=== PATIENT | female | born 2000 | race Caucasian/White ===

== ENCOUNTER 2023-07-12 11:38 | Inpatient (IN) | payer OTHER ==
[2023-07-30] MEDS ORDERED: TRANEXAMIC 1,000 MG/100ML-NACL 1,000 MG in EMPTY BAG 1 BAG IV PRN (10:16)
[2023-07-30] MEDS ORDERED: CARBOPROST TROMETHAMINE 250 MCG/ML 1 ML AMP IM PRN (10:16)
[2023-07-30] MEDS ORDERED: OXYTOCIN 10 UNIT/ML 1 ML VIAL IM PRN (10:16)
[2023-07-30] MEDS ORDERED: METHYLERGONOVINE 0.2 MG/ML 1 ML AMP IM PRN (10:16)
[2023-07-30] MEDS ORDERED: miSOPROStoL 200 MCG TAB PO PRN (10:16)
[2023-07-30 10:39] LABS: Basophils % (A) 0 %; Eosinophils # (A) 0.1 k/uL (0-0.7); Eosinophils % (A) 1 %; HCT 36.8 % (34.0-46.0); HGB 12.7 gm/dL (11.4-16.0); Lymphocytes # (A) 1.1 k/uL (1.0-4.8); Lymphocytes % (A) 12 %; MCH 31.1 pg (25.0-35.0); MCHC 34.4 g/dL (31.0-37.0); MCV 90.4 fL (80.0-100.0); Mean Platelet Volume 11.2; Monocytes # (A) 0.2 k/uL (0-1.0); Monocytes % (A) 3 %; Neutrophils # (A) 7.3 k/uL (1.3-7.7); Neutrophils % (A) 82 %; Platelet Count 175 k/uL (150-450); RBC 4.07 m/uL (3.80-5.40); RDW 13.2 % (11.5-15.5); WBC 8.8 k/uL (3.8-10.6)
[2023-07-30] MEDS: CITRIC ACID-SODIUM CITRATE 15 ML CUP PO ONE (11:18)
--- NOTE | 2023-07-30 11:37 | P.HPOB ---
History of Present Illness H&P Date: 07/30/23 Chief Complaint: 39+ weeks, breech presentation The patient is a 23-year-old 1 para 0 admitted at 39+ weeks as established by last menstrual period and confirmed by 9 week ultrasound. She is admitted secondary to persistent breech presentation for primary low-transverse section. Her has been complicated by an episode of Covid during the for which she had weekly testing which was reassuring beginning at 32 weeks. She additionally was found to have polyhydramnios in the late third trimester. She is otherwise found with her rubella status to be equivocal and will be treated . Group B strep status is negative. On labor and delivery, all signs reassuring with a category 1 heart rate tracing. Obstetrical history: 1 para 0 with current statistics listed in history present illness. EDC of 08/02/2023 was established by last menstrual period and confirmed by 9 week ultrasound. Laboratory workup demonstrates a blood type of O+ with a negative antibody screen. Rubella status is nonimmune. Remainder of the laboratory workup was within normal limits. Early Glucola was elevated but followed by a normal three-hour glucose tolerance test. Her second trimester Glucola was again elevated but followed by a normal glucose three-hour tolerance test. Group B strep status is negative. Gynecologic history: Unremarkable with no history of any infections to include STDs. Review of Systems Review of systems is confined to history of present illness. Past Medical History Past Medical History: No Reported History History of Any Multi-Drug Resistant Organisms: None Reported Past Surgical History: Cholecystectomy Additional Past Surgical History / Comment(s): 06/2022 Past Anesthesia/Blood Transfusion Reactions: No Reported Reaction Past Psychological History: No Psychological Hx Reported Smoking Status: Former smoker Past Alcohol Use History: None Reported Past Drug Use History: None Reported Additional Drug Use History / Comment(s): pt vaped but stopped when she found out she was - Past Family History Mother Family Medical History: No Reported History Medications and Allergies Home Medications Medication Instructions Recorded Confirmed Type Vit No.179/Iron/Folic 07/30/23 History [ Tablet] Allergies Allergy/AdvReac Type Severity Reaction Status Date / Time No Known Allergies Allergy Verified 07/30/23 10:12 Exam Vital Signs Temp Pulse Resp BP Pulse Ox 07/30/23 10:30 98.6 F 89 20 128/77 98 07/30/23 10:10 98.6 F 89 20 128/77 98 Intake and Output 07/29/23 07/30/23 07/30/23 22:59 06:59 14:59 Output Total 50 Balance -50 Output: Urine 50 Uretheral (Chambers) 50 Other: Weight 117.934 kg In general, this is a well-developed, moderately obese white female in no acute distress. Her heart has a regular rhythm and rate without murmur. Her lungs clear to auscultation bilaterally in all klein. Her abdomen is gravid, nondistended, has normal active bowel sounds, soft, nontender, without any palpable masses aside from uterine fundus. Her extremities are without any cyanosis, clubbing, or significant edema and are nontender to palpation bilaterally. Digital cervical examination is deferred. Bedside hand-held ultrasound confirms breech presentation with the head in the right upper quadrant. Results Result Diagrams: 07/30/23 10:15 Assessment and Plan (1) Term Current Visit: Yes Status: Acute Code(s): Z34.90 - ENCNTR FOR SUPRVSN OF NORMAL , UNSP, UNSP TRIMESTER SNOMED Code(s): 09168122 (2) Breech presentation Current Visit: Yes Status: Acute Code(s): O32.1XX0 - MATERNAL CARE FOR BREECH PRESENTATION, UNSP SNOMED Code(s): 5722746 Plan: Patient was counseled in the office regarding alternatives and declined to undergo attempt at external cephalic version. Instead, she has elected to proceed with primary low-transverse section. The risks and complications of been thoroughly discussed and she has understood and agreed to proceed.
[2023-07-30] MEDS ORDERED: PHENYLEPHRINE-0.9% NACL SYG 1,000 MCG/10 ML SYRINGE ONE (11:53)
[2023-07-30] MEDS ORDERED: OXYTOCIN 30 UNITS/500 ML NS BAG IV ONE (11:53)
[2023-07-30] MEDS ORDERED: MORPHINE SULFATE (PF) 0.3 MG/0.3 ML SYR ONE (11:53)
[2023-07-30] MEDS ORDERED: ePHEDrine 50 MG/ML 1 ML VIAL ONE (11:53)
[2023-07-30] MEDS ORDERED: ONDANSETRON 4 MG/2 ML VIAL IVP PRN (12:30)
[2023-07-30] MEDS ORDERED: diphenhydrAMINE 50 MG/ML 1 ML VIAL IVP PRN ×2 (12:30→12:49)
[2023-07-30] MEDS ORDERED: NALOXONE 0.4 MG/ML 1 ML VIAL IV PRN (12:30)
[2023-07-30] MEDS ORDERED: diphenhydrAMINE 25 MG CAP PO PRN (12:49)
[2023-07-30] MEDS ORDERED: LANOLIN CREAM 5 GM TUBE TOPICAL PRN (12:49)
[2023-07-30] MEDS ORDERED: diphenhydrAMINE 50 MG CAP PO PRN (12:49)
[2023-07-30] MEDS ORDERED: SIMETHICONE 80 MG CHEWABLE PO PRN (12:49)
[2023-07-30] MEDS ORDERED: ZOLPIDEM 5 MG TAB PO PRN (12:49)
--- NOTE | 2023-07-30 12:57 | P.OP ---
Date of Procedure: 07/30/23 Preoperative Diagnosis: #1. 39+ weeks, persistent breech presentation Postoperative Diagnosis: Same Procedure(s) Performed: #1. Primary low-transverse section Anesthesia: spinal Surgeon: Tyron Urbina Machine Operator Replanter #1: Anitha Tate Estimated Blood Loss (ml): 605 IV fluids (ml): 1,100 Urine output (ml): 125 Pathology: none sent Condition: stable Disposition: floor Operative Findings: Preoperative bedside hand-held ultrasound confirmed the fetus to remain in breech presentation with the head in the right upper quadrant. The patient was taken the operating room where she was delivered by primary section of a viable 7 lbs. 3 oz. baby girl with Apgars of 9 at 1 minute and 9 at 5 minutes delivered in the complete breech presentation by double footling extraction with standard breech maneuvers. There was a loose nuchal cord 1 which was reduced following delivery of the infant. The placenta was delivered manually, intact, and grossly normal with a grossly normal three-vessel cord. The uterus, tubes, and ovaries were entirely normal to inspection. Description of Procedure: The patient was prepped and draped in usual fashion after spinal anesthesia was administered by the anesthesiologist. A Pfannenstiel incision was made and extended to the abdominal cavity without difficulty. The bladder peritoneum was significantly distal to the intended site of incision was left intact. A 270 incision was made in the transverse plane of the lower uterine segment to enter the uterus at which time a fairly significant amount of clear fluid was noted. The incision was extended in both directions using the bandage scissors. Complete breech presentation was noted. The feet were grasped and breech extraction carried out with standard breech maneuvers without difficulty. A nuchal cord was noted and was reduced after delivery of the infant onto the field. cord blood was collected in a segment of cord doubly clamped, cut, and set aside should cord gases become necessary. The placenta was delivered manually and intact as noted above. The uterus was exteriorized and the interior cavity of the uterus swept of any remaining placental or membranous fragments. The margins of the uterine incision were grasped with Beckman clamps and the incision closed in 2 layers. The first layer was a running locking stitch of 0 chromic catgut followed by a running imbricating layer of 0 chromic catgut, each from margin to margin. The posterior cul-de-sac was suctioned with a guard followed by laparotomy sponge and the uterine and ovarian findings were normal as noted above. The uterus was replaced within the abdominal cavity and the gutters swept of any remaining blood, fluid, or clot. There was some ongoing bleeding at the left angle of the incision which was made hemostatic with 2 separate [id number]-ozwzy stitches of 0 chromic catgut. Following this, hemostasis appeared to be excellent. Any very small points of bleeding were made hemostatic with the Bovie. Once achieved, the parietal peritoneum was loosely reapproximated in the layer of muscles examined and found to be hemostatic. The fascia was closed with 2 running stitches of 0 Vicryl proceeding from lateral margins to the midpoint. The subcutaneous tissues were irrigated, made hemostatic with the Bovie, and reapproximated with a running stitch of 30 plain catgut. The skin was reapproximated with a running subcuticular stitch of 4-0 Vicryl from margin to margin followed by half-inch Steri-Strips placed with Mastisol. Her quantitative blood loss for the case was 605 mL. There were no complications. All sponge, instrument, and needle counts were correct. The patient tolerated the procedure well and proceeded to the recovery room in stable condition. Both mother and are resting comfortably in recovery.
[2023-07-30] MEDS ORDERED: OXYTOCIN 30 UNITS/500 ML NS 30 UNIT in SALINE 1 500ML.BAG IV SCH (13:00)
[2023-07-30] MEDS: LACTATED RINGERS 1,000 ML IV SCH (14:54)
[2023-07-30] MEDS: METOCLOPRAMIDE 5 MG/ML 2 ML VIAL IVP PRN (16:14)
[2023-07-30] MEDS: ACETAMINOPHEN TAB 500 MG TAB PO SCH (18:24)
[2023-07-30] MEDS: KETOROLAC 15 MG/ML 1 ML VIAL IVP PRN (18:26)
[2023-07-30] MEDS: SENNOSIDES-DOCUSATE SODIUM 1 EACH TAB PO SCH (21:14)
[2023-07-31 04:31] LABS: Basophils % (A) 0 %; Eosinophils # (A) 0.1 k/uL (0-0.7); Eosinophils % (A) 1 %; HGB 10.5 gm/dL (11.4-16.0); Lymphocytes # (A) 1.1 k/uL (1.0-4.8); Lymphocytes % (A) 12 %; MCH 31.3 pg (25.0-35.0); MCHC 33.9 g/dL (31.0-37.0); MCV 92.3 fL (80.0-100.0); Mean Platelet Volume 11.2; Monocytes # (A) 0.4 k/uL (0-1.0); Monocytes % (A) 4 %; Neutrophils # (A) 7.6 k/uL (1.3-7.7); Neutrophils % (A) 82 %; Platelet Count 146 k/uL (150-450); RBC 3.36 m/uL (3.80-5.40); RDW 12.9 % (11.5-15.5); WBC 9.2 k/uL (3.8-10.6)
[2023-07-31] MEDS: IBUPROFEN 600 MG TAB PO SCH (05:50)
--- NOTE | 2023-07-31 07:08 | P.PN ---
Progress Note - Text Progress Note Date: 07/31/23 23 yo Female s/p C/section with Duramorph Spinal POD#1 Patient seen and examined, doing well No LBP, no neurological deficits mild pruritus VAS 0-2 depending on movement Patient ambulating and tolerating diet well. Ok for discharge from anesthetic standpoint
--- NOTE | 2023-07-31 09:56 | P.PNOBGPC ---
Subjective - Subjective Principal diagnosis: Day 1 Interval history: Feeling well, pain well controlled. Patient reports: Reports appetite normal, Reports voiding normally, Reports pain well controlled, Reports ambulating normally, Denies dizzy ambulation, Denies nauseated : doing well Objective - Vital Signs Latest vital signs: Vital Signs Temp Pulse Resp BP Pulse Ox 07/31/23 06:10 14 07/31/23 04:16 14 07/31/23 02:32 14 07/31/23 00:34 99.2 F 91 14 111/69 07/31/23 00:31 99.2 F 91 14 111/69 07/30/23 21:13 14 07/30/23 20:54 97.7 F 92 14 113/76 07/30/23 17:00 16 99 07/30/23 16:00 97.3 F L 92 16 112/72 99 07/30/23 15:02 98 F 69 16 114/66 97 07/30/23 14:54 98 F 69 16 114/66 97 07/30/23 14:39 78 16 116/68 07/30/23 14:24 80 16 113/61 07/30/23 14:09 70 16 107/58 07/30/23 13:54 81 16 101/53 98 07/30/23 13:39 77 16 101/53 97 07/30/23 13:30 82 16 105/52 97 07/30/23 13:24 83 16 96/51 97 07/30/23 13:09 79 16 100/51 100 07/30/23 12:54 97.7 F 83 16 104/52 98 07/30/23 12:30 97.7 F 83 16 104/52 98 07/30/23 10:30 98.6 F 89 20 128/77 98 07/30/23 10:10 98.6 F 89 20 128/77 98 Intake and Output 07/30/23 07/31/23 07/31/23 22:59 06:59 14:59 Intake Total 1720 Output Total 1400 850 Balance -1400 870 Intake: IV 1000 Oral 720 Output: Urine 1400 850 Straight 550 Uretheral (Chambers) 300 Other: # Voids 1 - Exam Extremities: Present: normal, edema Abdomen: Present: normal appearance, soft. Absent: distention, tenderness Incision: Present: normal, dry, intact. Absent: erythematous Uterus: Present: normal, firm. Absent: tenderness - Labs Labs: Abnormal Lab Results - Last 24 Hours (Table) 07/31/23 Range/Units 03:49 RBC 3.36 L (3.80-5.40) m/uL Hgb 10.5 L (11.4-16.0) gm/dL Hct 31.0 L (34.0-46.0) % Plt Count 146 L (150-450) k/uL Assessment and Plan (1) Breech presentation Current Visit: Yes Status: Acute Code(s): O32.1XX0 - MATERNAL CARE FOR BREECH PRESENTATION, UNSP SNOMED Code(s): 5537870 (2) Maternal excessive weight gain Current Visit: Yes Status: Acute Code(s): O26.00 - EXCESSIVE WEIGHT GAIN IN , UNSPECIFIED TRIMESTER SNOMED Code(s): 6816763689 (3) Polyhydramnios Current Visit: Yes Status: Acute Code(s): O40.9XX0 - POLYHYDRAMNIOS, UNSP TRIMESTER, NOT APPLICABLE OR UNSP SNOMED Code(s): 59933838 (4) Rubella non-immune status, antepartum Current Visit: Yes Status: Acute Code(s): O09.899 - SUPERVISION OF OTHER HIGH RISK PREGNANCIES, UNSP TRIMESTER; Z28.39 - OTHER UNDERIMMUNIZATION STATUS SNOMED Code(s): 475461906 (5) Term Current Visit: Yes Status: Acute Code(s): Z34.90 - ENCNTR FOR SUPRVSN OF NORMAL , UNSP, UNSP TRIMESTER SNOMED Code(s): 05826475 (6) S/P section Current Visit: Yes Status: Acute Code(s): Z98.891 - HISTORY OF UTERINE SCAR FROM PREVIOUS SURGERY SNOMED Code(s): 239737937 Plan: Postop day 1 status post primary low transverse section for breech presentation. She is doing well this morning. Vital signs are stable and her blood work is within normal limits. Routine care.
[2023-08-01 08:03] VITALS: BP 119/77; PULSE 82; RESP 17; TEMP 98
--- NOTE | 2023-08-01 09:53 | P.DS ---
Providers Date of admission: 07/30/23 09:57 Expected date of discharge: 08/01/23 Attending physician: Tyron Urbina Primary care physician: Stated None - Discharge Diagnosis(es) (1) Breech presentation Current Visit: Yes Status: Acute (2) Maternal excessive weight gain Current Visit: Yes Status: Acute (3) Polyhydramnios Current Visit: Yes Status: Acute (4) Rubella non-immune status, antepartum Current Visit: Yes Status: Acute (5) Term Current Visit: Yes Status: Acute (6) S/P section Current Visit: Yes Status: Acute Hospital Course: This is a 23-year-old 1 now para 1 woman admitted at 39+ weeks gestation for scheduled primary low transverse section secondary to breech presentation. Regnancy was complicated by polyhydramnios. Please see the admission history and physical for complete details. Following admission she went to the operating room where she underwent an uncomplicated primary low transverse section. Findings at the time of surgery were significant for female in the complete breech presentation with Apgars of 9 at 1 minute and 9 at 5 minutes weighing 7 lbs. 3 oz. Please see the operative report for details. The patient's postoperative course was unremarkable. By postoperative day #1 she was ambulating and voiding without difficulty. She was tolerating a general diet and her vital signs were stable. By postoperative day #2 she continued to do well. Her incision was well healing and she was ambulating and voiding without difficulty. Her postoperative labs were reassuring and her vital signs were stable. Her incision appeared well healing and her lochia was minimal. She did have some difficulty with breast-feeding and decided to formula feed the . She was discharged home on postoperative day #2 with routine instructions for care and follow-up. Procedures: Primary low transverse section Patient Condition at Discharge: Good Plan - Discharge Summary New Discharge Prescriptions: New Ibuprofen [Motrin] 600 mg PO Q6H PRN #30 tab PRN Reason: Pain Acetaminophen Tab [Tylenol] 1,000 mg PO Q6H PRN #30 tab PRN Reason: Pain Continue Vit No.179/Iron/Folic [ Tablet] Discharge Medication List Vit No.179/Iron/Folic [ Tablet] 07/30/23 [History] Acetaminophen Tab [Tylenol] 1,000 mg PO Q6H PRN #30 tab 08/01/23 [Rx] Ibuprofen [Motrin] 600 mg PO Q6H PRN #30 tab 08/01/23 [Rx] Follow up Appointment(s)/Referral(s): Tyron Urbina MD [STAFF PHYSICIAN] - 2 Weeks Activity/Diet/Wound Care/Special Instructions: Follow-up in 2 weeks after surgery in the office. Call the office with any concerning signs or symptoms including fever greater than 100.5, severe abdominal pain, heavy vaginal bleeding, signs of wound infection, increased swelling or redness of the lower extremities, signs of depression. No driving for 2 weeks after surgery. No heavy lifting or vigorous activity until reevaluated in the office. No intercourse for 6 weeks after delivery. Discharge Disposition: HOME SELF-CARE
[2023-08-01] MEDS: MEASLES-MUMPS-RUBELLA VACC/PF 12,500 UNIT/0.5 ML VIAL SQ ONE (12:08)
== END 2023-08-01 14:00 | disposition home or self-care (01) | DRG 540 ==
LOC: 4FBP 07-30 09:57
PROVIDERS: ADMIT Obstetrics & Gynecology; ATTEND Obstetrics & Gynecology
PROC: 10D00Z1 Extraction of Products of Conception, Low, Open Approach (ICD-10-PCS; principal; 2023-07-31)
DX: O26.03 Excessive weight gain in pregnancy, third trimester (principal); O32.1XX0 Maternal care for breech presentation, not applicable or unspecified; O40.3XX0 Polyhydramnios, third trimester, not applicable or unspecified; O99.73 Diseases of the skin and subcutaneous tissue complicating the puerperium; O69.81X0 Labor and delivery complicated by cord around neck, without compression, not applicable or unspecified; L29.9 Pruritus, unspecified; Z37.0 Single live birth; Z3A.39 39 weeks gestation of pregnancy; Z87.891 Personal history of nicotine dependence; Z90.49 Acquired absence of other specified parts of digestive tract
CPT/HCPCS: 85025; 86850; 86900; 86901; 90707